=== PATIENT | male | born 1985 | race Hispanic/Latino ===

== ENCOUNTER 2017-07-10 08:39 | Inpatient (IN) | payer SELFPAY ==
[2017-07-10 09:26] LABS: Lactic Acid - Sepsis 1.2 mmol/L (0.5-2.2)
[2017-07-10 09:30] LABS: ALT (SGPT) 41 U/L (8-55); AST (SGOT) 24 U/L (5-34); Alkaline Phosphatase 97 U/L (40-150); BUN (Urea Nitrogen) 8 mg/dL (8.9-20.6); Bilirubin, Total 0.6 mg/dL (0.2-1.2); CK (CPK) 356 U/L (30-200); Calc. Creatinine Clearance 0 mL/min (70-130); Calcium 9.9 mg/dL (7.8-10.44); Chloride 100 mmol/L (98-107); Estimated GFR-MDRD 75; Globulin 3.9 g/dL (2.4-3.5); Protein, Total 8.3 g/dL (6.0-8.3)
[2017-07-10 09:32] LABS: Hematocrit 47.6 % (42.0-52.0); Mean Platelet Volume 15.6 fL (7.4-10.4); Red Blood Cell (RBC) Count 5.53 mill/uL (4.70-6.10); White Blood Cell (WBC) Count 24.2 thou/uL (4.8-10.8)
[2017-07-10 09:35] LABS: Carbon Dioxide Less than 8 mmol/L (22-29)
[2017-07-10 09:44] LABS: Band 7 % (5-11); Neutrophil 79 % (42-75); Reactive Lymphocytes 3 % (0-10)
[2017-07-10] MEDS ORDERED: Insulin Regular 300 UNITS/3 ML VIAL ONE (09:49)
[2017-07-10 10:15] LABS: Bilirubin Negative (Negative); Blood, Urine Small (Negative); Glucose, Urine (Dipstick) 500 mg/dL (Negative); Ketone, Urine > or equal to 80 mg/dL (Negative); Nitrite Negative (Negative); Protein, Urine (Dipstick) 100 mg/dL (Neg-Trace); Urobilinogen 0.2 mg/dL (0.2-1.0)
[2017-07-10 10:33] LABS: Bacteria/HPF None Seen HPF (None Seen); RBC/HPF 0-3 HPF (0-3); Squamous Epithelial 0-3 HPF (0-3); WBC/HPF None Seen HPF (0-3)
--- NOTE | 2017-07-10 12:12 | RAD ---
CHEST 1 VIEW: Date: 07/10/17 HISTORY: Chest pain. Leukocytosis. FINDINGS: No comparison. The cardiac silhouette is magnified by projection. Pulmonary vasculature is unremarkable. Mediastinu m is midline. There is no lobar consolidation or evidence of pneumothorax. IMPRESSION: No active cardiopulmonary abnormalities are demonstrated. POS: [facility]
[2017-07-10 12:24] LABS: Magnesium 1.8 mg/dL (1.6-2.6); Phosphorus 2.7 mg/dL (2.3-4.7)
[2017-07-10] MEDS ORDERED: Ondansetron HCl/PF 4 MG/2 ML Vial IVP PRN (14:06)
[2017-07-10] MEDS ORDERED: Ondansetron ODT 4 MG TAB PO PRN (14:07)
[2017-07-10] MEDS ORDERED: Dextrose 5 % And 0.9 % NaCl 1,000 ML IV SCH (14:15)
[2017-07-10] MEDS ORDERED: Insulin Regular (Human) 100 UNITS, Admixture Fee 1 EACH in Sodium Chloride 0.9% 100 ML IVPB SCH ×2 (14:15→15:45)
[2017-07-10 14:20] VITALS: BMI 34.0
[2017-07-10] MEDS ORDERED: Potassium Phosphate 12 MMOL in Sodium Chloride 0.9% 250 ML 250 ML IV PRN (15:50)
[2017-07-10] MEDS ORDERED: Potassium Phosphate 15 MMOL in Sodium Chloride 0.9% 250 ML 250 ML IV PRN (15:50)
[2017-07-10] MEDS ORDERED: Magnesium 2 GM/NS 0.9% 100 ML 2 GM in Premix Bag 1 BAG IVPB PRN (15:50)
[2017-07-10] MEDS ORDERED: Potassium Chloride 40 MEQ in Premix Bag 1 BAG IVPB PRN (15:50)
[2017-07-10] MEDS ORDERED: CCU ELECTROLYTE REPLACEMENT PROTOCOL FS PRN (15:50)
[2017-07-10] MEDS ORDERED: Potassium Chloride 40 MEQ in Sodium Chloride 0.9% 250 ML 250 ML IVPB PRN (15:50)
[2017-07-10] MEDS ORDERED: Potassium Phosphate 9 MMOL in Sodium Chloride 0.9% 100 ML IVPB PRN (15:50)
[2017-07-10] MEDS ORDERED: Magnesium Oxide 400 MG TAB PO PRN (15:50)
[2017-07-10] MEDS ORDERED: Potassium Chloride 20 MEQ TAB PO PRN (15:50)
[2017-07-10 15:54] LABS: Anion Gap 21 mmol/L (10-20); BUN (Urea Nitrogen) 11 mg/dL (8.9-20.6); Calc. Creatinine Clearance 118 mL/min (70-130); Calcium 9.3 mg/dL (7.8-10.44); Carbon Dioxide 11 mmol/L (22-29); Chloride 103 mmol/L (98-107); Estimated GFR-MDRD 64
[2017-07-10] MEDS ORDERED: Famotidine 20 MG TAB PO PRN (16:31)
[2017-07-10] MEDS ORDERED: Bisacodyl 5 MG TAB PO PRN (16:31)
[2017-07-10] MEDS ORDERED: HYDROcodone/Acetaminophen 5/325 mg Tablet PO PRN (16:31)
[2017-07-10] MEDS ORDERED: Acetaminophen 325 MG TAB PO PRN (16:31)
--- NOTE | 2017-07-10 16:44 | PDOC.EVN ---
Event Note - Event Note Event Note: pt seen and evaluated # [id number] a/p -- dka, rt groing cellulits, sirs, leukocytosis, gerd, obesity
[2017-07-10] MEDS ORDERED: Dextrose 5 %-0.45 % NaCl 1,000 ML IV PRN (17:36)
[2017-07-10] MEDS ORDERED: Dextrose 5% in Water 1,000 ML IV PRN (17:36)
[2017-07-10] MEDS ORDERED: Sodium Chloride 0.9% 1,000 ML IV PRN ×4 (17:36)
[2017-07-10] MEDS ORDERED: Dextrose 50% Abboject 50 ML SYRINGE SLOW IVP PRN (17:36)
[2017-07-10] MEDS ORDERED: NS 0.9% w/ 20 MEQ KCL 1,000 ML/1,000 ML BAG IV PRN ×2 (17:36)
[2017-07-10] MEDS ORDERED: Insulin Regular 300 UNITS/3 ML VIAL IVP SCH (17:45)
[2017-07-10] MEDS: D5 1/2 NS w/20 mEq KCL 1,000 ML IV PRN ×2 (18:10→23:19)
[2017-07-10] MEDS: Piperacillin/Tazobactam 3.375 GM in Sodium Chloride 0.9% 100 ML IVPB SCH ×2 (18:11→23:20)
[2017-07-10] MEDS: Magnesium Oxide 400 MG TAB PO PRN ×2 (18:11→23:22)
[2017-07-10] MEDS: Dextrose 5 % And 0.9 % NaCl 1,000 ML IV SCH ×2 (18:13→23:52)
[2017-07-10 20:54] LABS: Bilirubin Small (Negative); Blood, Urine Negative (Negative); Glucose, Urine (Dipstick) >=1000 mg/dL (Negative); Ketone, Urine > or equal to 80 mg/dL (Negative); Nitrite Negative (Negative); Protein, Urine (Dipstick) 30 mg/dL (Neg-Trace); Urobilinogen 0.2 mg/dL (0.2-1.0)
[2017-07-10 20:58] LABS: Bacteria/HPF None Seen HPF (None Seen); Hyaline Casts/LPF 0-3 HYALINE CAST LPF (0-3 Hyaline); RBC/HPF 0-3 HPF (0-3); Squamous Epithelial None Seen HPF (0-3); WBC/HPF 0-3 HPF (0-3)
[2017-07-10] MEDS ORDERED: FLU VACC QS2017-18 36 mo. & older 0.5 ML SYRINGE IM ONE (21:00)
--- NOTE | 2017-07-11 00:33 | HP ---
CHIEF COMPLAINT: Not feeling well and feeling hot all the time. HISTORY OF PRESENT ILLNESS: This is a 31-year-old pleasant gentleman, who was apparently in his [facility] state of health, came into the [facility] with complaints of body aches and headaches and feeling hot all the time. The patient was found to be in diabetic ketoacidosis with bicarbonate of 8 and high glucose, so he was given some IV insulin and sent to our hospital for evaluation and pb atment of DKA. He denies any chills, complains of feeling hot, but does not have any subjective reg arding the temperature. No nausea, no vomiting, no abdominal pain, no chest pain, no shortness of b reath. PAST MEDICAL HISTORY: Significant for diabetes mellitus, GERD. PAST SURGICAL HISTORY: None. FAMILY HISTORY: Negative for diabetes, hypertension. ALLERGIES: No known drug allergies. SOCIAL HISTORY: Does not smoke, drink or do any recreational drugs on a regular basis. He occasion ally smokes, occasionally does drug. MEDICATIONS: He used to take insulin about 6 months back when he was first diagnosed with diabetes 1 year back, but he stopped taking it because he thought that diet and exercise would control it. REVIEW OF SYSTEMS: Significant for feeling hot, headaches. Otherwise, no chills, no headache, no e ye pain, no hearing loss, no latencies. No cough, no chest pain, diarrhea, dysuria, or polyuria. N o memory or mood changes. No neck pain. PHYSICAL EXAMINATION: VITAL SIGNS: Blood pressure is 140/88, pulse is 109, respirations 20, satting 98% on room air. GENERAL: Patient is lying in bed in no apparent distress. HEENT: Atraumatic and normocephalic. Pupils equal, round, react to light. Extraocular movements i ntact. Mucous membranes moist. NECK: Supple. No JVD. CHEST: Breath sounds. There are no rales or rhonchi. HEART: S1, S2. No murmurs or gallops. ABDOMEN: Soft. EXTREMITIES: No cyanosis, clubbing, edema. Distal pulses present. NEUROLOGIC: Alert, awake, oriented. No cranial deficits. No sensorimotor deficits. SKIN: Examination of skin in the groin shows a right inguinal induration measuring about 7 cm x 3 c m in diameter open wound, which is draining serosanguineous material. PSYCHIATRIC: The patient is at this point. LABORATORY DATA: Potassium is 4.1, creatinine 1.1, bicarbonate is 8. WBC count is 24, hemoglobin i s 17, BUN is 8. ASSESSMENT AND PLAN: 1. Diabetic ketoacidosis, exacerbated by right groin wound. We will put the patient on diabetic ke toacidosis protocol. We will check BMP q.4 hours. Glucose of the patient is already in the 200s. We will put him on D5 half normal saline at 125 q.4 hours and optimize treatment. 2. Right groin wound looks like a fungal infection, which has got complicated by a superficial bact erial infection. The area is indurated, I cannot appreciate any abscess, but we will do a CT scan o f the area to make there is no abscess. We will empirically treat the patient with IV Zosyn and wou nd cultures and blood cultures. 3. Gastroesophageal reflux disease. We will empirically treat with p.r.n. Pepcid. I have educated him about lifestyle sequential compression devices for deep venous thrombosis prophylaxis. The pat ient will follow the labs and do the need for.
[2017-07-11] MEDS: D5 1/2 NS w/20 mEq KCL 1,000 ML IV PRN ×2 (04:23→09:27)
[2017-07-11 04:57] LABS: #Lymphocytes 1.9 thou/uL (1.20-3.40); #Monocytes 0.7 thou/uL (0.11-0.59); #Neutrophils 8.4 thou/uL (1.40-6.50); %Basophils 0.2 % (0.0-1.0); %Eosinophils 0.3 % (0.0-10.0); %Lymphocytes 17.4 % (21.0-51.0); %Monocytes 6.1 % (0.0-10.0); Mean Platelet Volume 11.4 fL (7.4-10.4); Red Blood Cell (RBC) Count 4.67 mill/uL (4.70-6.10)
[2017-07-11 04:59] LABS: Anion Gap 11 mmol/L (10-20); BUN (Urea Nitrogen) 11 mg/dL (8.9-20.6); BUN/Creatinine Ratio 11.11; Calc. Creatinine Clearance 157 mL/min (70-130); Carbon Dioxide 18 mmol/L (22-29); Chloride 109 mmol/L (98-107); Estimated GFR-MDRD 89; Magnesium 2.3 mg/dL (1.6-2.6); Phosphorus Less than 1.0 mg/dL (2.3-4.7)
[2017-07-11] MEDS: Piperacillin/Tazobactam 3.375 GM in Sodium Chloride 0.9% 100 ML IVPB SCH ×3 (05:05→16:46)
[2017-07-11] MEDS: Fluconazole 100 MG TAB PO SCH (09:28)
[2017-07-11] MEDS: Dextrose 5 % And 0.9 % NaCl 1,000 ML IV SCH (09:29)
[2017-07-11] MEDS ORDERED: Insulin Regular 300 UNITS/3 ML VIAL SC SCH (12:00)
[2017-07-11] MEDS: Sodium Chloride 0.9% 1,000 ML IV SCH (12:05)
--- NOTE | 2017-07-11 13:42 | MRI ---
MRI PELVIS WITH AND WITHOUT GADOLINIUM CONTRAST: HISTORY: Ulceration and abscess pelvic soft tissues. FINDINGS: Increased T2 signal, decreased T1 signal, and heterogeneous enhancement are present throughout the s ubcutaneous tissues adjacent to the right gluteal fold. While some edematous infiltration of the sk in is apparent, no focal subcutaneous fluid collections are visible. Underlying musculature is main tained. No bone marrow signal abnormalities are apparent. IMPRESSION: Subcutaneous edema and infiltration associated with the right side of the intragluteal fold. No chel p soft tissue involvement or significant fluid collections are apparent. POS: [facility]
[2017-07-11] MEDS ORDERED: Dextrose 50% Abboject 50 ML SYRINGE SLOW IVP PRN (14:05)
[2017-07-11] MEDS ORDERED: Dextrose 5% in Water 1,000 ML IV PRN (14:05)
--- NOTE | 2017-07-11 14:08 | PDOC.PN ---
- Subjective Encounter Start Date: 07/11/17 Encounter Start Time: 14:06 Patient seen and examined. No new complaints. No overnight events - Objective MAR Reviewed: Yes Vital Signs & Weight: Vital Signs (12 hours) Temp Pulse Resp BP Pulse Ox 07/11/17 11:45 98.0 F 84 16 125/80 94 L 07/11/17 08:00 97.9 F 84 18 98 07/11/17 07:17 97.9 F 84 18 106/63 96 07/11/17 03:38 98.1 F 82 18 114/69 96 Weight Weight 227 lb 9 oz I&O: 07/10/17 07/11/17 07/12/17 06:59 06:59 06:59 Intake Total 4580 Output Total 2600 Balance 1979 Result Diagrams: 07/11/17 03:57 07/11/17 03:57 Additional Labs: Accuchecks 07/11/17 07/11/17 07/11/17 11:11 10:01 09:13 POC Glucose 142 H 180 H 169 H 07/11/17 07/11/17 07/11/17 08:04 07:07 05:59 POC Glucose 167 H 149 H 131 H 07/11/17 07/11/17 07/11/17 05:00 03:03 02:01 POC Glucose 153 H 337 H 359 H 07/11/17 07/11/17 07/10/17 01:00 00:01 23:00 POC Glucose 317 H 337 H 275 H 07/10/17 07/10/17 07/10/17 22:02 21:01 20:00 POC Glucose 143 H 170 H 186 H 07/10/17 07/10/17 07/10/17 18:59 18:00 17:01 POC Glucose 180 H 217 H 248 H 07/10/17 07/10/17 07/10/17 16:02 14:56 14:03 POC Glucose 309 H 304 H 286 H Phys Exam - Physical Examination Constitutional: NAD HEENT: PERRLA Neck: no JVD Respiratory: no wheezing Cardiovascular: no significant murmur Gastrointestinal: non-tender Musculoskeletal: pulses present Neurological: normal sensation Deviation from normal: erythema and induration improved Dx/Plan (1) DKA (diabetic ketoacidoses) Code(s): E13.10 - OTH DIABETES MELLITUS WITH KETOACIDOSIS WITHOUT COMA Status : Resolved (2) Diabetes mellitus Code(s): E11.9 - TYPE 2 DIABETES MELLITUS WITHOUT COMPLICATIONS Status: Acute (3) Obesity (BMI 30.0-34.9) Code(s): E66.9 - OBESITY, UNSPECIFIED Status: Acute (4) Cellulitis of groin, right Code(s): L03.314 - CELLULITIS OF GROIN Status: Acute (5) GERD (gastroesophageal reflux disease) Code(s): K21.9 - GASTRO-ESOPHAGEAL REFLUX DISEASE WITHOUT ESOPHAGITIS Status: Acute - Plan * start metformin * cont abx * cont ivf for now * d/c to floor * iss
[2017-07-11] MEDS: HumaLOG 300 UNITS/3 ML VIAL SC PRN ×2 (16:40→21:54)
[2017-07-12] MEDS: Piperacillin/Tazobactam 3.375 GM in Sodium Chloride 0.9% 100 ML IVPB SCH ×5 (00:08→23:24)
[2017-07-12 05:09] LABS: #Lymphocytes 1.9 thou/uL (1.20-3.40); #Monocytes 0.3 thou/uL (0.11-0.59); #Neutrophils 3.5 thou/uL (1.40-6.50); %Basophils 0.4 % (0.0-1.0); %Eosinophils 0.5 % (0.0-10.0); %Lymphocytes 32.3 % (21.0-51.0); %Monocytes 5.1 % (0.0-10.0); Hematocrit 44.9 % (42.0-52.0); Mean Platelet Volume 11.4 fL (7.4-10.4); Red Blood Cell (RBC) Count 4.82 mill/uL (4.70-6.10); White Blood Cell (WBC) Count 5.7 thou/uL (4.8-10.8)
[2017-07-12 05:55] LABS: Anion Gap 15 mmol/L (10-20); BUN (Urea Nitrogen) 8 mg/dL (8.9-20.6); BUN/Creatinine Ratio 7.92; Calc. Creatinine Clearance 156 mL/min (70-130); Calcium 9.4 mg/dL (7.8-10.44); Carbon Dioxide 21 mmol/L (22-29); Chloride 104 mmol/L (98-107); Estimated GFR-MDRD 87; Phosphorus 2.7 mg/dL (2.3-4.7)
[2017-07-12] MEDS: HumaLOG 300 UNITS/3 ML VIAL SC PRN ×3 (05:56→21:01)
[2017-07-12] MEDS: Sodium Chloride 0.9% 1,000 ML IV SCH ×2 (05:58→11:14)
[2017-07-12] MEDS: Fluconazole 100 MG TAB PO SCH (07:59)
[2017-07-12] MEDS ORDERED: glipiZIDE 10 MG TAB PO SCH (11:45)
[2017-07-12] MEDS ORDERED: Insulin Detemir 100 UNITS/ML 10 UNITS in Pre-Filled Syringe 1 EACH SC SCH (11:45)
--- NOTE | 2017-07-12 13:30 | PDOC.PN ---
- Subjective Encounter Start Date: 07/12/17 Encounter Start Time: 11:45 Subjective: says his medial buttock swelling is receding with less pain this morning - Objective MAR Reviewed: Yes Vital Signs & Weight: Vital Signs (12 hours) Temp Pulse Resp BP Pulse Ox 07/12/17 08:00 97.6 F 70 20 104/68 97 07/12/17 06:47 97.8 F 80 20 07/12/17 03:51 97.8 F 80 20 128/79 98 Weight Weight 227 lb 9 oz I&O: 07/11/17 07/12/17 07/13/17 06:59 06:59 06:59 Intake Total 4580 1950 Output Total 2600 Balance 1979 1949 Result Diagrams: 07/12/17 04:46 07/12/17 04:46 Additional Labs: Accuchecks 07/12/17 07/12/17 07/11/17 11:53 03:49 21:00 POC Glucose 275 H 394 H 355 H 07/11/17 16:20 POC Glucose 341 H Phys Exam - Physical Examination HEENT: PERRLA, moist MMs Neck: no JVD, supple Respiratory: no wheezing, no rales Cardiovascular: RRR, no significant murmur Gastrointestinal: soft, non-tender, positive bowel sounds medial gluteal/perineal area has an area of induration but no fluctation Musculoskeletal: no edema, pulses present Neurological: non-focal, moves all 4 limbs Psychiatric: A&O x 3 Dx/Plan (1) Cellulitis of groin, right Code(s): L03.314 - CELLULITIS OF GROIN Status: Acute (2) Diabetes mellitus Code(s): E11.9 - TYPE 2 DIABETES MELLITUS WITHOUT COMPLICATIONS Status: Chronic Qualifiers: Diabetes mellitus type: type 2 Diabetes mellitus complication status: with hyperglycemia Diabetes mellitus jail insulin use: without manager talent acquisition use Qualified Code(s): E11.65 - Type 2 diabetes mellitus with hyperglycemia (3) GERD (gastroesophageal reflux disease) Code(s): K21.9 - GASTRO-ESOPHAGEAL REFLUX DISEASE WITHOUT ESOPHAGITIS Status: Chronic (4) Obesity (BMI 30.0-34.9) Code(s): E66.9 - OBESITY, UNSPECIFIED Status: Chronic (5) DKA (diabetic ketoacidoses) Code(s): E13.10 - OTH DIABETES MELLITUS WITH KETOACIDOSIS WITHOUT COMA Status : Resolved Qualifiers: Diabetes mellitus type: type 2 - Plan levemir 10 u bid till am -: hold metformin till am due to gadolinium given yesterday -: add glipizide 5mg bid -: on zosyn for medial thigh cellulitis/early abscess -: no insulins on discharge, cant afford * . Review of Systems - Medications/Allergies Allergies/Adverse Reactions: Allergies Allergy/AdvReac Type Severity Reaction Status Date / Time ciprofloxacin [From Cipro] Allergy Verified 07/10/17 14:15 Medications: Current Medications Acetaminophen (Tylenol) 650 mg PO Q4H PRN PRN Reason: Headache/Fever or Mild Pain Hydrocodone Bitart/Acetaminophen ([place] 5/325) 1 tab PO Q4H PRN PRN Reason: Moderate Pain (4-6) Bisacodyl (Dulcolax) 10 mg PO DAILYPRN PRN PRN Reason: Constipation Dextrose/Water (Dextrose 50%) 25 gm SLOW IVP PRN PRN PRN Reason: Hypoglycemia Famotidine (Pepcid) 20 mg PO BIDPRN PRN PRN Reason: Heartburn or Indigestion Fluconazole (Diflucan) 100 mg PO DAILY [facility] Last Admin: 07/12/17 07:59 Dose: 100 mg Glipizide (Glucotrol) 10 mg PO NOW [facility] Stop: 07/12/17 13:45 Last Admin: 07/12/17 12:16 Dose: 10 mg Glipizide (Glucotrol) 5 mg PO BID-[facility] Glucagon (Glucagon) 1 mg IM PRN PRN PRN Reason: Hypoglycemia Hydralazine HCl (Apresoline) 10 mg SLOW IVP Q4H PRN PRN Reason: Systolic BP > 180 Piperacillin Sod/Tazobactam (Sod 3.375 gm/ Sodium Chloride) 100 mls @ 200 mls/ hr IVPB Q6HR [facility] Stop: 07/15/17 18:01 Last Admin: 07/12/17 10:53 Dose: 100 mls Sodium Chloride (Normal Saline 0.9%) 1,000 mls @ 75 mls/hr IV .[id number] [facility] Last Admin: 07/12/17 11:14 Dose: 1,000 mls Dextrose/Water (D5w) 1,000 mls @ 0 mls/hr IV .Q0M PRN; As Directed PRN Reason: Hypoglycemia Insulin Detemir 10 units/ (Miscellaneous Medication) 0.1 mls @ 0 mls/hr SC NOW [facility] Stop: 07/12/17 13:45 Last Admin: 07/12/17 12:15 Dose: 0.1 mls Insulin Detemir 10 units/ (Miscellaneous Medication) 0.1 mls @ 0 mls/hr SC [facility] Stop: 07/13/17 07:00 Insulin Human Lispro (Humalog) 0 units SC .MILD SLIDING SCALE PRN PRN Reason: Mild Correctional Scale Last Admin: 07/12/17 05:56 Dose: 10 unit Insulin Human Lispro (Humalog) 0 units SC .BEDTIME SLIDING SC PRN; Protocol PRN Reason: BEDTIME SLIDING SCALE Last Admin: 07/11/17 21:54 Dose: 5 unit Metformin HCl (Glucophage) 500 mg PO BID-[facility] Sodium Chloride (Flush - Normal Saline) 10 ml IVF Q12HR [facility] Last Admin: 07/12/17 10:14 Dose: 10 ml Sodium Chloride (Flush - Normal Saline) 10 ml IVF PRN PRN PRN Reason: Saline Flush
[2017-07-12] MEDS: glipiZIDE 5 MG TAB PO SCH (16:06)
[2017-07-12] MEDS ORDERED: Insulin Detemir 100 UNITS/ML 10 UNITS in Pre-Filled Syringe SC SCH (21:00)
[2017-07-13 05:18] LABS: Anion Gap 13 mmol/L (10-20); BUN (Urea Nitrogen) 10 mg/dL (8.9-20.6); Calc. Creatinine Clearance 197 mL/min (70-130); Calcium 9.1 mg/dL (7.8-10.44); Carbon Dioxide 24 mmol/L (22-29); Chloride 106 mmol/L (98-107); Estimated GFR-MDRD Greater than 90; Phosphorus 3.2 mg/dL (2.3-4.7)
[2017-07-13] MEDS: Piperacillin/Tazobactam 3.375 GM in Sodium Chloride 0.9% 100 ML IVPB SCH ×3 (05:51→16:34)
[2017-07-13] MEDS: HumaLOG 300 UNITS/3 ML VIAL SC PRN ×4 (05:52→22:05)
[2017-07-13] MEDS: Sodium Chloride 0.9% 1,000 ML IV SCH ×2 (05:53→16:58)
[2017-07-13] MEDS: Fluconazole 100 MG TAB PO SCH (08:34)
[2017-07-13] MEDS: glipiZIDE 5 MG TAB PO SCH ×2 (08:34→16:16)
--- NOTE | 2017-07-13 14:10 | PDOC.PN ---
- Subjective Encounter Start Date: 07/13/17 Encounter Start Time: 10:50 Subjective: feels better - Objective MAR Reviewed: Yes Vital Signs & Weight: Vital Signs (12 hours) Temp Pulse Resp BP Pulse Ox 07/13/17 08:34 98.4 F 64 16 124/81 98 07/13/17 08:00 98.4 F 64 16 Weight Weight 227 lb 9 oz I&O: 07/12/17 07/13/17 07/14/17 06:59 06:59 06:59 Intake Total 1950 4350 Balance 1950 4350 Result Diagrams: 07/12/17 04:46 07/13/17 04:45 Additional Labs: Accuchecks 07/13/17 07/13/17 07/12/17 11:15 04:13 16:41 POC Glucose 304 H 228 H 257 H 07/10/17 13:10 POC Glucose 280 H Phys Exam - Physical Examination HEENT: PERRLA, moist MMs Neck: no JVD, supple Respiratory: no wheezing, no rales Cardiovascular: RRR, no significant murmur Gastrointestinal: soft, non-tender, positive bowel sounds perineal cellulitis is receding, no fluctation Musculoskeletal: no edema, pulses present Neurological: non-focal, moves all 4 limbs Psychiatric: A&O x 3 Dx/Plan (1) Cellulitis of groin, right Code(s): L03.314 - CELLULITIS OF GROIN Status: Acute (2) Diabetes mellitus Code(s): E11.9 - TYPE 2 DIABETES MELLITUS WITHOUT COMPLICATIONS Status: Chronic Qualifiers: Diabetes mellitus type: type 2 Diabetes mellitus complication status: with hyperglycemia Diabetes mellitus terminal carman insulin use: without assisted use Qualified Code(s): E11.65 - Type 2 diabetes mellitus with hyperglycemia (3) GERD (gastroesophageal reflux disease) Code(s): K21.9 - GASTRO-ESOPHAGEAL REFLUX DISEASE WITHOUT ESOPHAGITIS Status: Chronic (4) Obesity (BMI 30.0-34.9) Code(s): E66.9 - OBESITY, UNSPECIFIED Status: Chronic (5) DKA (diabetic ketoacidoses) Code(s): E13.10 - OTH DIABETES MELLITUS WITH KETOACIDOSIS WITHOUT COMA Status : Resolved Qualifiers: Diabetes mellitus type: type 2 - Plan on zosyn -: may dc iv fluids -: started his metformin this morning -: has been on glipizide from yesterday -: dc plan in am on augmentin for 7 days * . Review of Systems - Medications/Allergies Allergies/Adverse Reactions: Allergies Allergy/AdvReac Type Severity Reaction Status Date / Time ciprofloxacin [From Cipro] Allergy Verified 07/10/17 14:15 Medications: Current Medications Acetaminophen (Tylenol) 650 mg PO Q4H PRN PRN Reason: Headache/Fever or Mild Pain Hydrocodone Bitart/Acetaminophen ([place] 5/325) 1 tab PO Q4H PRN PRN Reason: Moderate Pain (4-6) Bisacodyl (Dulcolax) 10 mg PO DAILYPRN PRN PRN Reason: Constipation Dextrose/Water (Dextrose 50%) 25 gm SLOW IVP PRN PRN PRN Reason: Hypoglycemia Famotidine (Pepcid) 20 mg PO BIDPRN PRN PRN Reason: Heartburn or Indigestion Fluconazole (Diflucan) 100 mg PO DAILY [facility] Last Admin: 07/13/17 08:34 Dose: 100 mg Glipizide (Glucotrol) 5 mg PO BID-[facility] Last Admin: 07/13/17 08:34 Dose: 5 mg Glucagon (Glucagon) 1 mg IM PRN PRN PRN Reason: Hypoglycemia Hydralazine HCl (Apresoline) 10 mg SLOW IVP Q4H PRN PRN Reason: Systolic BP > 180 Piperacillin Sod/Tazobactam (Sod 3.375 gm/ Sodium Chloride) 100 mls @ 200 mls/ hr IVPB Q6HR [facility] Stop: 07/15/17 18:01 Last Admin: 07/13/17 11:54 Dose: 100 mls Sodium Chloride (Normal Saline 0.9%) 1,000 mls @ 75 mls/hr IV .[id number] [facility] Last Admin: 07/13/17 05:53 Dose: 1,000 mls Dextrose/Water (D5w) 1,000 mls @ 0 mls/hr IV .Q0M PRN; As Directed PRN Reason: Hypoglycemia Insulin Human Lispro (Humalog) 0 units SC .MILD SLIDING SCALE PRN PRN Reason: Mild Correctional Scale Last Admin: 07/13/17 11:52 Dose: 8 unit Insulin Human Lispro (Humalog) 0 units SC .BEDTIME SLIDING SC PRN; Protocol PRN Reason: BEDTIME SLIDING SCALE Last Admin: 07/12/17 21:01 Dose: 5 unit Metformin HCl (Glucophage) 500 mg PO BID-[facility] Last Admin: 07/13/17 08:33 Dose: 500 mg Sodium Chloride (Flush - Normal Saline) 10 ml IVF Q12HR [facility] Last Admin: 07/13/17 09:16 Dose: 10 ml Sodium Chloride (Flush - Normal Saline) 10 ml IVF PRN PRN PRN Reason: Saline Flush
[2017-07-14] MEDS: Piperacillin/Tazobactam 3.375 GM in Sodium Chloride 0.9% 100 ML IVPB SCH ×2 (00:29→05:58)
[2017-07-14] MEDS: HumaLOG 300 UNITS/3 ML VIAL SC PRN (06:00)
[2017-07-14] MEDS: Fluconazole 100 MG TAB PO SCH (07:43)
[2017-07-14] MEDS: glipiZIDE 5 MG TAB PO SCH (07:44)
[2017-07-14 07:59] VITALS: BP 111/68; TEMP 98.2
--- NOTE | 2017-07-14 11:30 | PDOC.PN ---
- Subjective Encounter Start Date: 07/14/17 Encounter Start Time: 08:00 Subjective: feels better, no abd pain -: tolerating oral diet - Objective MAR Reviewed: Yes Vital Signs & Weight: Vital Signs (12 hours) Temp Pulse Resp BP Pulse Ox 07/14/17 08:00 98.2 F 74 20 98 07/14/17 07:58 98.2 F 74 20 111/68 97 Weight Weight 227 lb 9 oz I&O: 07/13/17 07/14/17 07/15/17 06:59 06:59 06:59 Intake Total 4350 3250 360 Balance 4350 3250 360 Result Diagrams: 07/12/17 04:46 07/13/17 04:45 Additional Labs: Accuchecks 07/14/17 07/13/17 07/13/17 05:03 20:50 15:33 POC Glucose 248 H 248 H 283 H 07/13/17 11:15 POC Glucose 304 H Phys Exam - Physical Examination HEENT: PERRLA, moist MMs Neck: no JVD, supple Respiratory: no wheezing, no rales Cardiovascular: RRR, no significant murmur Gastrointestinal: soft, non-tender, no distention, positive bowel sounds Musculoskeletal: no edema, pulses present Neurological: non-focal, moves all 4 limbs Psychiatric: A&O x 3 Dx/Plan (1) Cellulitis of groin, right Code(s): L03.314 - CELLULITIS OF GROIN Status: Acute (2) Diabetes mellitus Code(s): E11.9 - TYPE 2 DIABETES MELLITUS WITHOUT COMPLICATIONS Status: Chronic Qualifiers: Diabetes mellitus type: type 2 Diabetes mellitus complication status: with hyperglycemia Diabetes mellitus prison insulin use: without termite exterminator helper use Qualified Code(s): E11.65 - Type 2 diabetes mellitus with hyperglycemia (3) GERD (gastroesophageal reflux disease) Code(s): K21.9 - GASTRO-ESOPHAGEAL REFLUX DISEASE WITHOUT ESOPHAGITIS Status: Chronic (4) Obesity (BMI 30.0-34.9) Code(s): E66.9 - OBESITY, UNSPECIFIED Status: Chronic (5) DKA (diabetic ketoacidoses) Code(s): E13.10 - OTH DIABETES MELLITUS WITH KETOACIDOSIS WITHOUT COMA Status : Resolved Qualifiers: Diabetes mellitus type: type 2 - Plan hemostable -: metformin 1g bid with glipizide -: augmentin for 1 week -: pt to check fingerstick glucose daily and record for 10 days to f/u withPCP * .
--- NOTE | 2017-07-14 20:41 | DIS ---
DATE OF ADMISSION: 07/10/2017 DATE OF DISCHARGE: 07/14/2017 DISCHARGE DISPOSITION: To home. PRIMARY DISCHARGE DIAGNOSES: Diabetic ketoacidosis, resolved; right groin/perineal cellulitis, reso lving; diabetes mellitus type 2; noncompliant with medication; obesity; and gastroesophageal reflux disease. PROCEDURES DONE DURING HOSPITALIZATION: Chest x-ray done showed no acute cardiopulmonary abnormalit ies. MRI of the pelvis done showed subcutaneous edema and infiltration associated with the right si de of the intragluteal fold. No deep soft tissue involvement or significant fluid collections were apparent. Blood cultures x2 no growth. Had a white count of 24 on the day of admission with discha rge numbers of 5, initial serum bicarbonate was less than 8 with serum glucose of 280. Beta hydroxy butyrate was 5.38. DISCHARGE MEDICATIONS: Metformin 1000 mg p.o. twice daily, glipizide 5 mg p.o. twice daily, and Aug mentin 875 mg p.o. twice daily for a period of 7 days. ALLERGIES: Allergic to CIPROFLOXACIN. DISCHARGE PLAN: The patient to follow up with primary care physician in 1 week. He is also advised to check fingerstick glucose on a daily basis for a period of 10 days and record. To follow up wit primary care physician. BRIEF COURSE DURING HOSPITALIZATION: Patient initially got admitted on 07/10/2017 with complaints o f not feeling well and feeling hot all the time. He was found to have had severe diabetic ketoacido sis with bicarbonate of less than 8. The patient is a known diabetic and was not taking his medicat ions for almost 6 months as he could not afford them. Also, patient started to exercise and tried d ieting and thought he could control his diabetes. The patient also had perineal area with induratio n and cellulitis, this was likely an early abscess. He has had MRI done which did not reveal any ab scess. He was placed on IV antibiotics and has been transitioned to oral Augmentin at the time of d ischarge. Patient requested oral medications. He has been switched over to metformin and glipizide . This has to be up titrated based on his fingerstick glucose for the next 10 days, which he has be en strongly advised to check and record. Followup with primary care physician. Please see a face t o face documentation on [employer] for the day of discharge.
== END 2017-07-14 11:30 | disposition home or self-care (01) | DRG 638 ==
LOC: SCSER 08:39 → IMCU/EMU 11:27 → T4-A 07-11 16:08
PROVIDERS: ADMIT Internal Medicine; ATTEND Internal Medicine
DX: E11.10 Type 2 diabetes mellitus with ketoacidosis without coma (principal); L03.315 Cellulitis of perineum; L03.314 Cellulitis of groin; B35.6 Tinea cruris; K21.9 Gastro-esophageal reflux disease without esophagitis; E66.9 Obesity, unspecified; Z68.34 Body mass index [BMI] 34.0-34.9, adult; Z91.19 Patient's noncompliance with other medical treatment and regimen; Z91.14 Patient's other noncompliance with medication regimen; Z88.1 Allergy status to other antibiotic agents
CPT/HCPCS: 36415; 36416; 71010; 72197; 80053; 80069; 81003; 81015; 82010; 82550; 83605; 83735; 84100; 85025; 87040; 87070; 87077; 87205; 96361; 96365; 96376; A4216; J1815; J2543; J7050